=== PATIENT | male | born 1955 | race Caucasian/White ===

== ENCOUNTER 2017-08-15 04:18 | Inpatient (IN) | payer OTHER ==
[2017-08-15] MEDS ORDERED: FUROSEMIDE 40 MG/4 ML VIAL IVP ONE (04:24)
[2017-08-15] MEDS ORDERED: IPRATROPIUM/ALBUTEROL 3 ML DEYVIAL IH ONE (04:24)
[2017-08-15] MEDS ORDERED: methylPREDNISolone SOD SUCC 125 MG/2 ML VIAL IVP ONE (04:24)
--- NOTE | 2017-08-15 04:26 | EDPHY ---
H & P Stated Complaint: shortness of breath Time Seen by Provider: 08/15/17 04:25 HPI/ROS: HPI The patient presents with shortness of breath, brought in by paramedics. Apparently, he has been sick over the last 5 days. He says there been multiple sick family members in the home. He has had congestion and mild coughing. He became worse this morning with wheezing. His checked his pulse oximetry and it was 70%. He was placed on his home oxygen without much improvement in his respiratory status, thus 911 was called. Paramedics placed him on CPAP with improvement of his sats to the 90s. He received a DuoNeb EN route. He was previously on Prolastin for many years, though off over the last 4 months due to some difficulties with insurance. He also says he has intermittent lower extremity edema which is worse lately. He denies any chest pain. REVIEW OF SYSTEMS Constitutional: No fever, no chills. Eyes: No discharge. ENT: No sore throat. Cardiovascular: No chest pain, no palpitations. Respiratory: No cough, no shortness of breath. Gastrointestinal: No abdominal pain, no vomiting. Genitourinary: No hematuria. Musculoskeletal: No back pain. Skin: No rashes. Neurological: No headache. PMHx: COPD alpha 1 antitrypsin, no hospitalizations that he can recall, on home oxygen and CPAP as needed Soc Hx: Lives at home with family PHYSICAL General Appearance: Alert, tachypneic Eyes: Pupils equal and round no pallor or injection ENT, Mouth: Mucous membranes dry Respiratory: Tachypneic, wheezes heard throughout all lung [place] Cardiovascular: Regular rate and rhythm Gastrointestinal: Abdomen is soft and non-tender, no masses, bowel sounds normal Neurological: A&O, moves all extremities Skin: Warm and dry, no rashes Musculoskeletal: Neck is supple non tender Extremities: symmetrical, full range of motion, 2+ lower extremity edema to mid calf Psychiatric: Patient is oriented X 3, there is no agitation Source: Patient, EMS Exam Limitations: No limitations Constitutional: Initial Vital Signs Temperature (C) 36.7 C 08/15/17 04:19 Heart Rate 110 H 08/15/17 04:19 Respiratory Rate 32 H 08/15/17 04:19 Blood Pressure 170/94 H 08/15/17 04:19 O2 Sat (%) 83 L 08/15/17 04:19 O2 Delivery Mode CPAP Allergies/Adverse Reactions: tetanus and diphtheria toxoids Allergy (Verified 08/15/17 04:28) Medical Decision Making - Diagnostics EKG Interpretation: EKG: Complete interpretation has been separately recorded in the [facility] archive. Summary impression: T-wave inversions in V1 through V3 Imaging Results: Chest x-ray two views shows diffuse infiltrate, no cardiomegaly, interpreted by me, radiology interpretation is pending Imaging: I viewed and interpreted images myself Differential Diagnosis: This is a 62-year-old male with an will flow 1 antitrypsin deficiency COPD who presents brought in by ambulance for shortness of breath and wheezing in the setting of 5 days of URI type symptoms with sick contacts at home. In the field , he received DuoNeb and was started on CPAP due to room-air saturations in the 70s. I met the paramedics upon their arrival to obtain their report. The patient was started on BiPAP immediately with improvement in his saturations. He was given DuoNeb and albuterol in-line. He was treated for COPD exacerbation with Solu-Medrol, antibiotics to provide coverage for community-acquired pneumonia. Patient did have lower extremity edema, pressure was notably elevated, BNP was also elevated raising suspicion for possible CHF exacerbation. Because of this the patient was given Lasix IV, sublingual nitro as well. Troponin returned elevated, EKG showed no ischemic changes, however the patient was given an aspirin given some diagnostic uncertainty. After BiPAP for about 1 hour, patient saturations remained in the high 80s to 90s. He was feeling better, however has continued requirement for BiPAP. I have ordered additional albuterol. The patient will require admission to the Step-Down Unit. I have discussed the case with the hospitalist Dr. Shannon who will admit the patient. Critical Care Time: CRITICAL CARE Critical care time spent by me, Dr. Brown, exclusively with this patient was 45 minutes, exclusive of PA time and exclusive of procedures. The organ system at risk was respiratory and I gave BiPAP, IV Lasix, IV antibiotics, and emergently transfer the patient to the SDU to prevent worsening of the patients condition. - Data Points Laboratory Results: Laboratory Results 08/15/17 04:30 08/15/17 04:30 08/15/17 08/15/17 04:30 04:30 WBC 4.97 10^3/uL 10^3/uL (3.80-9.50) RBC 5.63 10^6/uL 10^6/uL (4.40-6.38) Hgb 19.3 g/dL H g/dL (13.7-17.5) Hct 55.3 % H % (40.0-51.0) MCV 98.2 fL fL (81.5-99.8) MCH 34.3 pg H pg (27.9-34.1) MCHC 34.9 g/dL g/dL (32.4-36.7) RDW 14.8 % % (11.5-15.2) Plt Count 138 10^3/uL L 10^3/uL (150-400) MPV 9.1 fL fL (8.7-11.7) Neut % (Auto) 73.8 % % (39.3-74.2) Lymph % (Auto) 14.1 % L % (15.0-45.0) [place] % (Auto) 11.5 % % (4.5-13.0) Eos % (Auto) 0.0 % L % (0.6-7.6) Baso % (Auto) 0.4 % % (0.3-1.7) Nucleat RBC Rel Count 0.0 % % (0.0-0.2) Absolute Neuts (auto) 3.67 10^3/uL 10^3/uL (1.70-6.50) Absolute Lymphs (auto) 0.70 10^3/uL L 10^3/uL (1.00-3.00) Absolute Monos (auto) 0.57 10^3/uL 10^3/uL (0.30-0.80) Absolute Eos (auto) 0.00 10^3/uL L 10^3/uL (0.03-0.40) Absolute Basos (auto) 0.02 10^3/uL 10^3/uL (0.02-0.10) Absolute Nucleated RBC 0.00 10^3/uL 10^3/uL (0-0.01) Immature Gran % 0.2 % % (0.0-1.1) Immature Gran # 0.01 10^3/uL 10^3/uL (0.00-0.10) Sodium 135 mEq/L mEq/L (134-144) Potassium 2.9 mEq/L L mEq/L (3.5-5.2) Chloride 80 mEq/L L mEq/L (97-110) Carbon Dioxide 42 mEq/l H* mEq/l (22-31) Anion Gap 13 mEq/L mEq/L (8-16) BUN 10 mg/dL mg/dL (7-23) Creatinine 0.6 mg/dL L mg/dL (0.7-1.3) Estimated GFR > 60 Glucose 123 mg/dL H mg/dL (70-100) Calcium 8.8 mg/dL mg/dL (8.5-10.4) Troponin I 0.066 ng/mL H ng/mL (0.000-0.034) NT-Pro-B Natriuret Pep 1960 pg/mL H pg/mL (0-125) Medications Given: Potassium Chloride (Potassium Cl 10 Meq (Premix)) 100 mls @ 100 mls/hr IV ONCE ONE Stop: 08/15/17 06:18 Last Admin: 08/15/17 05:22 Dose: 100 mls Discontinued Medications Albuterol/Ipratropium (Duoneb) 3 ml IH EDNOW ONE Stop: 08/15/17 04:25 Last Admin: 08/15/17 04:31 Dose: 3 ml Aspirin (Aspirin) 324 mg PO EDNOW ONE Stop: 08/15/17 05:40 Last Admin: 08/15/17 05:42 Dose: 324 mg Azithromycin (Zithromax) 500 mg PO EDNOW ONE PRN Reason: Protocol Stop: 08/15/17 05:18 Last Admin: 08/15/17 05:26 Dose: 500 mg Furosemide (Lasix Injection) 40 mg IVP EDNOW ONE Stop: 08/15/17 04:25 Last Admin: 08/15/17 04:31 Dose: 40 mg Ceftriaxone Sodium/Dextrose (Rocephin 1 Gm (Premix)) 50 mls @ 100 mls/hr IV EDNOW ONE PRN Reason: Protocol Stop: 08/15/17 05:46 Last Admin: 08/15/17 05:26 Dose: 50 mls Methylprednisolone Sodium Succinate (Solu-Medrol) 125 mg IVP EDNOW ONE Stop: 08/15/17 04:25 Last Admin: 08/15/17 04:31 Dose: 125 mg Nitroglycerin (Nitrostat) 0.4 mg SL EDNOW ONE Stop: 08/15/17 05:19 Last Admin: 08/15/17 05:25 Dose: 1 tab Potassium Chloride (Klor Packets) 40 meq PO EDNOW ONE Stop: 08/15/17 05:20 Last Admin: 08/15/17 05:21 Dose: 40 meq Departure - Departure Disposition: [facility] Inpatient Acute Clinical Impression: Chronic obstructive pulmonary disease with acute exacerbation, Respiratory distress Condition: Fair
[2017-08-15 04:39] LABS: % IMMATURE GRANULYOCYTES 0.2 % (0.0-1.1); ABSOLUTE IMMATURE GRANULOCYTES 0.01 10^3/uL (0.00-0.10); ADD DIFF? NO; ADD MORPH? NO; ADD SCAN? NO; ATYPICAL LYMPHOCYTE FLAG 40 (0-99); FRAGMENT RBC FLAG 20 (0-99); HEMATOCRIT 55.3 % (40.0-51.0); HEMOGLOBIN 19.3 g/dL (13.7-17.5); LEFT SHIFT FLG 0 (0-99); LIPEMIA HEMOLYSIS FLAG 90 (0-99); MEAN CELL HEMOGLOBIN 34.3 pg (27.9-34.1); MEAN CELL HEMOGLOBIN CONCENTR. 34.9 g/dL (32.4-36.7); MEAN CELL VOLUME 98.2 fL (81.5-99.8); MEAN PLATELET VOLUME 9.1 fL (8.7-11.7); PLATELET CLUMPS FLAG 0 (0-99); PLATELET COUNT 138 10^3/uL (150-400); RED BLOOD CELL COUNT 5.63 10^6/uL (4.40-6.38); RED CELL DISTRIBUTION WIDTH 14.8 % (11.5-15.2)
--- NOTE | 2017-08-15 04:52 | CPEKG ---
Heart Rate: 91 RR Interval: 659 P-R Interval: 156 QRSD Interval: 96 QT Interval: 380 QTC Interval: 468 P [place]: 72 QRS [place]: 95 T Wave [place]: 26 EKG Severity - BORDERLINE ECG - EKG Impression: SINUS RHYTHM EKG Impression: PROBABLE LEFT ATRIAL ABNORMALITY EKG Impression: RIGHT AXIS DEVIATION EKG Impression: BORDERLINE T ABNORMALITIES, ANTERIOR LEADS Electronically Signed By: Ashley Brown 15-Aug-2017 06:07:24
[2017-08-15 04:55] LABS: CALCIUM 8.8 mg/dL (8.5-10.4); CHLORIDE 80 mEq/L (97-110); CREATININE 0.6 mg/dL (0.7-1.3); GLOMERULAR FILTRATION RATE > 60; GLUCOSE 123 mg/dL (70-100); POTASSIUM 2.9 mEq/L (3.5-5.2); SODIUM 135 mEq/L (134-144)
[2017-08-15 05:07] LABS: TROPONIN I 0.066 ng/mL (0.000-0.034)
[2017-08-15 05:12] LABS: ANION GAP 13 mEq/L (8-16)
[2017-08-15 05:13] LABS: CARBON DIOXIDE 42 mEq/l (22-31)
[2017-08-15] MEDS ORDERED: AZITHROMYCIN 250 MG TAB PO ONE (05:17)
[2017-08-15] MEDS ORDERED: POTASSIUM CL 20 MEQ PKT ONE (05:17)
[2017-08-15] MEDS ORDERED: POTASSIUM Cl (KCl) 10 MEQ/100 ML BAG IV ONE (05:18)
[2017-08-15] MEDS ORDERED: NITROGLYCERIN 0.4 MG BTL SL ONE (05:18)
[2017-08-15] MEDS ORDERED: POTASSIUM CL 20 MEQ PKT PO ONE (05:19)
[2017-08-15] MEDS ORDERED: POTASSIUM Cl (KCl) 100 ML IV ONE (05:19)
[2017-08-15] MEDS ORDERED: ASPIRIN 81 MG CHEWABLE TAB PO ONE (05:39)
[2017-08-15] MEDS ORDERED: ALBUTEROL 3 ML DEYVIAL IH PRN (05:57)
[2017-08-15] MEDS ORDERED: ONDANSETRON DISINTEGRATING 4 MG TAB PO PRN (05:57)
[2017-08-15] MEDS ORDERED: ONDANSETRON 4 MG/2 ML VIAL IVP PRN (05:57)
[2017-08-15] MEDS ORDERED: ACETAMINOPHEN 325 MG TAB PO PRN (05:57)
[2017-08-15] MEDS ORDERED: IPRATROPIUM/ALBUTEROL 3 ML DEYVIAL IH SCH ×2 (06:00→12:00)
[2017-08-15] MEDS ORDERED: ALBUTEROL 3 ML DEYVIAL IH ONE ×2 (06:00→06:01)
[2017-08-15] MEDS ORDERED: ALBUTEROL 3 ML DEYVIAL ONE (06:12)
[2017-08-15 06:19] LABS: PCO2 VENOUS 77 mmHg (40-44); PH VENOUS BLOOD 7.39 (7.31-7.42); PO2 VENOUS 58 mmHg (35-40); TCO2 VENOUS 48 mEq/L (23-27); VEN MEASURED OXYGEN SATURATION 89 % (65-75)
--- NOTE | 2017-08-15 06:49 | PDGENHP ---
History and Physical - Chief Complaint Shortness of breath - History of Present Illness 62 yo M w/ COPD presents with shortness of breath. Patient developed sore throat and fatigue several days ago and has had sick contacts with similar symptoms. Over the last few days he began to develop wheezing and shortness of breath. He checked a home pulse ox and noted O2 sats in the 70's so he called EMS. Upon arrival in the ED he was noted to be in respiratory distress with audible wheezes and placed on NIPPV. Symptoms improved with nebulizer treatment and steroids. Additionally, vascular congestion on CXR and RADHA raised suspicion for volume overload so Lasix was given as well. History Information - Allergies/Home Medication List Allergies/Adverse Reactions: tetanus and diphtheria toxoids Allergy (Verified 08/15/17 04:28) I have personally reviewed and updated: family history, medical history - Past Medical History COPD - Family History Additional family history: Asked, denies family history - Social History Smoking Status: Former smoker Review of Systems Review of Systems: ROS: 10pt was reviewed & negative except for what was stated in HPI & below Physical Exam Physical Exam: Temp Pulse Resp BP Pulse Ox 36.7 C 96 16 133/95 H 98 08/15/17 04:19 08/15/17 06:18 08/15/17 06:18 08/15/17 06:18 08/15/17 06:18 Constitutional: obese, uncomfortable Eyes: PERRL, EOMI Ears, Nose, Mouth, Throat: moist mucous membranes, no oral mucosal ulcers Cardiovascular: no murmur, rub, or gallop, tachycardia, edema (2+ b/l RADHA) Respiratory: expiratory wheeze, respiratory distress, rhonchi Gastrointestinal: normoactive bowel sounds, distension Skin: warm, normal color Musculoskeletal: full muscle strength, no muscle tenderness Neurologic: AAOx3, CN II-XII Intact Psychiatric: interacting appropriately, not anxious Lab Data & Imaging Review 08/15/17 04:30 08/15/17 04:30 WBC 4.97 10^3/uL (3.80-9.50) 08/15/17 04:30 RBC 5.63 10^6/uL (4.40-6.38) 08/15/17 04:30 Hgb 19.3 g/dL (13.7-17.5) H 08/15/17 04:30 Hct 55.3 % (40.0-51.0) H 08/15/17 04:30 MCV 98.2 fL (81.5-99.8) 08/15/17 04:30 MCH 34.3 pg (27.9-34.1) H 08/15/17 04:30 MCHC 34.9 g/dL (32.4-36.7) 08/15/17 04:30 RDW 14.8 % (11.5-15.2) 08/15/17 04:30 Plt Count 138 10^3/uL (150-400) L 08/15/17 04:30 MPV 9.1 fL (8.7-11.7) 08/15/17 04:30 Neut % (Auto) 73.8 % (39.3-74.2) 08/15/17 04:30 Lymph % (Auto) 14.1 % (15.0-45.0) L 08/15/17 04:30 [place] % (Auto) 11.5 % (4.5-13.0) 08/15/17 04:30 Eos % (Auto) 0.0 % (0.6-7.6) L 08/15/17 04:30 Baso % (Auto) 0.4 % (0.3-1.7) 08/15/17 04:30 Nucleat RBC Rel Count 0.0 % (0.0-0.2) 08/15/17 04:30 Absolute Neuts (auto) 3.67 10^3/uL (1.70-6.50) 08/15/17 04:30 Absolute Lymphs (auto) 0.70 10^3/uL (1.00-3.00) L 08/15/17 04:30 Absolute Monos (auto) 0.57 10^3/uL (0.30-0.80) 08/15/17 04:30 Absolute Eos (auto) 0.00 10^3/uL (0.03-0.40) L 08/15/17 04:30 Absolute Basos (auto) 0.02 10^3/uL (0.02-0.10) 08/15/17 04:30 Absolute Nucleated RBC 0.00 10^3/uL (0-0.01) 08/15/17 04:30 Immature Gran % 0.2 % (0.0-1.1) 08/15/17 04:30 Immature Gran # 0.01 10^3/uL (0.00-0.10) 08/15/17 04:30 Puncture Site NONE GIVEN 08/15/17 06:10 Patient Temperature 37.0 DEGREES 08/15/17 06:10 VBG pH 7.39 (7.31-7.42) 08/15/17 06:10 VBG HCO3 45 mEQ/L (22-26) H 08/15/17 06:10 VBG Total CO2 48 mEq/L (23-27) H 08/15/17 06:10 VBG O2 Saturation 89 % (65-75) H 08/15/17 06:10 VBG Base Excess 14.1 mEq/L (-2.5-2.5) H 08/15/17 06:10 Mixed VBG pCO2 77 mmHg (40-44) H 08/15/17 06:10 Mixed VBG pO2 58 mmHg (35-40) H 08/15/17 06:10 Sodium 135 mEq/L (134-144) 08/15/17 04:30 Potassium 2.9 mEq/L (3.5-5.2) L 08/15/17 04:30 Chloride 80 mEq/L (97-110) L 08/15/17 04:30 Carbon Dioxide 42 mEq/l (22-31) H* 08/15/17 04:30 Anion Gap 13 mEq/L (8-16) 08/15/17 04:30 BUN 10 mg/dL (7-23) 08/15/17 04:30 Creatinine 0.6 mg/dL (0.7-1.3) L 08/15/17 04:30 Estimated GFR > 60 08/15/17 04:30 Glucose 123 mg/dL (70-100) H 08/15/17 04:30 Calcium 8.8 mg/dL (8.5-10.4) 08/15/17 04:30 Troponin I 0.066 ng/mL (0.000-0.034) H 08/15/17 04:30 NT-Pro-B Natriuret Pep 1960 pg/mL (0-125) H 08/15/17 04:30 Visualized and Interpreted Chest x-ray results: Yes Chest X-Ray results: other (Vascular congestion, mild pulmonary edema) Visualized and Interpreted EKG results: Yes EKG Interpretation: Positive for: normal sinsus rhythm, other (RAD), T waves inversion (V1-V3) Assessment & Plan Assessment: 62 yo M w/ COPD presents with SOB 2/2 COPD exacerbation with possible contribution from new CHF. Plan: 1. COPD w/ acute exacerbation - Currently with respiratory distress requiring NIPPV. Suspect viral trigger noting URI symptoms for several days prior to presentation in the setting of sick contacts. Per patient, COPD 2/2 A1A deficiency. Flu pending. - Admit to SDU noting need for NIPPV - Scheduled duonebs, albuterol PRN - Azithromycin, prednisone 40 mg qD x5 days - Restart home inhaler (Anoro) once respiratory distress resolves 2. Acute hypoxic and hypercarbic respiratory failure - 2/2 above, low suspicion for bacterial pneumonia but will continue azithromycin in setting of COPD exacerbation. Possible contribution from undiagnosed CHF. - Acute treatment as above, wean O2 as able 3. Presumed CHF - Suspicion based on vascular congestion on CXR, lower extremity edema, and elevated BNP. Likely has at least right sided dysfunction noting obesity and pulmonary disease. Patient takes Lasix 20 mg PO qD for lower extremity edema without diagnosis of CHF. - TTE for further evaluation - Lasix 40 mg IV x1 given in ED 4. Elevated troponin - No chest pain or symptoms to suggest ACS; likely demand ischemia associated with respiratory distress and hypoxia. - Monitor on telemetry, trend cardiac enzymes 5. Secondary polycythemia - 2/2 poorly controlled COPD. 6. Hypokalemia - Replete PRN Diet - Regular Code - Full Ppx - LMWH Dispo - Admit to SDU under inpatient status noting need for continuous BIPAP, further cardiac work-up, and frequent monitoring.
[2017-08-15] MEDS ORDERED: PROTOCOL POTASSIUM 1 DOSE MISC PRN (07:32)
--- NOTE | 2017-08-15 07:32 | PDMN ---
Medical Necessity Medical necessity: C/M review: est. > 2 MN LOS for eval and TX of acute COPD exacerbation, acute hypoxic respiratory failure, presumed new CHF, elevated troponin, hnypokalemia, requiring IV Lasix x 1 in ED, planned echocardiogram, ongoing O2 BIPAP, Duonebs, albuterol nebs as needed, oral Azithramycin, oral Prednisone, cardiac monitoring, pulse oximetry in SDU, comorbid COPD per H/P.
[2017-08-15] MEDS ORDERED: PROTOCOL MAGNESIUM 1 DOSE IV PRN (07:33)
[2017-08-15] MEDS ORDERED: predniSONE 20 MG TAB PO SCH (09:00)
[2017-08-15] MEDS ORDERED: ENOXAPARIN 40 MG/0.4 ML SYR SC SCH (09:00)
[2017-08-15] MEDS ORDERED: FUROSEMIDE 20 MG TAB PO SCH (09:45)
[2017-08-15] MEDS ORDERED: NON-FORMULARY NEW DRUG (Umeclidinium Brm/Vilanterol Tr [Anoro Ellipta 62.5-25 Mcg Inh] 1 E IH SCH (09:45)
--- NOTE | 2017-08-15 09:51 | HOSPPROG ---
Hospitalist Progress Note Assessment/Plan: COPD w/ acute exacerbation - Required bipap on admission, now on face mask. Suspect viral etiology with sick contacts (+parainfluenza). COPD 2/2 A1A deficiency. Flu neg. O2 requirement 12 LPM --> 5 LPM - Cont scheduled duonebs, albuterol PRN (changed to xopenex/atrovent given A fib after neb) - Change to IV Solumedrol BID - Restart home inhaler, Anoro (LABA plus anti-cholinergic) - Likely needs steroid inhaler at d/c, +/- Spiriva Acute hypoxic and hypercarbic respiratory failure - 2/2 above. Possible contribution from undiagnosed CHF. - Continue azithromycin in setting of COPD exacerbation. - Doubt PNA, but will check PCT - wean O2 as able - Cont Lasix as below Suspect acute HF - CXR personally reviewed and interpreted, +vascular congestion plus LE edema, and elevated BNP. Likely has at least right sided dysfunction noting obesity and pulmonary disease. Patient takes Lasix 20 mg PO qD for lower extremity edema without diagnosis of CHF. - Echo today - Cont IV Lasix - monitor I&O's A fib with RVR - new diagnosis. Pt with sustained RVR for >6 hrs. - Echo as above - Given IV Dilt and Metoprolol - Start oral dilt 30 q6h - Will start Lovenox 1 mg/kg BID Elevated troponin - No chest pain or symptoms to suggest ACS; likely demand ischemia associated with respiratory distress and hypoxia. - Monitor on telemetry, trend cardiac enzymes Secondary polycythemia - 2/2 poorly controlled COPD. Hypokalemia - Check Mag, Electrolyte protocol ordered Diet - Regular Code - Full Ppx - LMWH Dispo - Cont inpt Subjective: Pt feels ok, off bipap on face mask. Reports ongoing coughing with sputum production. Had sore throat and congestion initially. No fevers. No CP. +SOB Objective: Vital Signs Temp Pulse Resp BP Pulse Ox 36.8 C 90 20 149/86 H 96 08/15/17 07:56 08/15/17 07:56 08/15/17 07:56 08/15/17 07:56 08/15/17 07:56 - Physical Exam Constitutional: no apparent distress Eyes: PERRL Ears, Nose, Mouth, Throat: moist mucous membranes Cardiovascular: irregularly irregular Respiratory: no respiratory distress, reduced air movement, expiratory wheeze Gastrointestinal: normoactive bowel sounds, soft, non-tender abdomen Skin: warm Musculoskeletal: full muscle strength Neurologic: AAOx3, other (b/l 1+ LE edema) ICD10 Worksheet Patient Problems: Problems Problem Status Onset Chronic obstructive pulmonary disease with acute exacerbation Acute Respiratory distress Acute
--- NOTE | 2017-08-15 09:57 | ECHO ---
[email or web address] [address] [address] Main: [phone] Fax: [email or web address] Echocardiogram Name: CHRISTINA ROCA MR#: [id number] Study Date: 08/15/2017 Study Time: 08:35 AM Date of : 1955 Age: 62 year(s) Height: 198.1 cm (78 in.) Weight: 117.94 kg (260 lb.) BSA: 2.52 m2 Gender: Male Examination: Echo Indication: SOB/pulmonary edema/elevated BNP Image Quality: Contrast: Requested by: Conner Benson BP: 134 mmHg/90 mmHg Heart Rate: Rhythm: Indication: SOB/pulmonary edema/elevated BNP Procedure Staff Rug Weaver: Vonnie Palmer Physician: Enrique Reddy Requesting Provider: Conclusions: The ejection fraction is estimated to be 70-75 %. LV septal appears flattened from RV volume overload.. Mildly dilated right ventricle. Measurements: Chambers Valvular Assessment AV/MV Valvular Assessment TV/PV Normal Normal Normal Name Value Range Name Value Range Name Value Range Ao Beatriz (MM): 4.1 cm (2.2 cm-3.7 AV Vmax: 1.24 m/s (1 m/s-1.7 cm) m/s) LVDd (2D): 5.4 cm (4.2 cm-5.9 AV maxP mmHg ( - ) cm) MV E Vmax: 0.79 m/s ( - ) EF Range: 70-75 % MV A Vmax: 0.69 m/s ( - ) MV E/A: 1.14 ( - ) Continued Measurements: Chambers Valvular Assessment AV/MV Name Value Name Value LADs: 3.2 cm MV E' Septal: 0.07 m/s MV E/E' Septal: 11.90 Findings: Left Ventricle: Normal size left ventricle. Global hypercontractility of the left ventricle. The ejection fraction is estimated to be 70-75 %. LV septal appears flattened from RV volume overload.. Right Ventricle: Mildly dilated right ventricle. Patient: CHRISTINA ROCA Study Date: 08/15/2017 Page 1 of 2 08:35 AM Left Atrium: The left atrium is normal in size. Right Atrium: The right atrium is not well visualized. Mitral Valve: The mitral valve is normal in appearance. Aortic Valve: Aortic valve opens well. . Tricuspid Valve: Tricuspid valve not well visualized. Trivial tricuspid valve regurgitation. Pulmonic Valve: Pulmonary valve not well visualized. Pericardium: There is pericardial fat. (No Signature Object) Patient: CHRISTINA ROCA Study Date: 08/15/2017 Page 2 of 2 08:35 AM [id number]
--- NOTE | 2017-08-15 11:23 | ASMTCMCOM ---
CM Note CM Note Notes: 62 year old male admitted for SOB, COPD exascerbation, respiratory failure, possible CHF. He has a hx of COPD. Anticipate that patient will return home with on discharge, probable no needs. Date Signed: 08/15/2017 11:22 AM Electronically Signed By:Dorothea Tejeda LCSW
[2017-08-15] MEDS ORDERED: METOPROLOL TARTRATE 5 MG/5 ML INJ IVP ONE (11:34)
[2017-08-15] MEDS ORDERED: DILTIAZEM 25 MG/5 ML VIAL IVP ONE (11:45)
[2017-08-15] MEDS: FLUTICASONE NASAL 120 SPRAYS/16 GM MDI EACHNARE SCH (12:18)
[2017-08-15] MEDS: FUROSEMIDE 40 MG/4 ML VIAL IVP SCH (12:19)
[2017-08-15] MEDS: guaiFENesin 600 MG TAB.ER PO SCH ×2 (12:19→20:53)
--- NOTE | 2017-08-15 12:26 | CPEKG ---
Heart Rate: 100 RR Interval: 600 QRSD Interval: 94 QT Interval: 400 QTC Interval: 516 QRS [place]: 101 T Wave [place]: 23 EKG Severity - ABNORMAL ECG - EKG Impression: ATRIAL FIBRILLATION, V-RATE 73-130 EKG Impression: RIGHT AXIS DEVIATION EKG Impression: BORDERLINE R WAVE PROGRESSION, ANTERIOR LEADS EKG Impression: BORDERLINE T ABNORMALITIES, ANTERIOR LEADS Electronically Signed By: Yobani Ocampo 16-Aug-2017 07:05:01
[2017-08-15] MEDS: methylPREDNISolone SOD SUCC 125 MG/2 ML VIAL IVP SCH ×3 (12:44→20:53)
[2017-08-15 12:56] LABS: POTASSIUM 3.1 mEq/L (3.5-5.2)
[2017-08-15 13:11] LABS: TROPONIN I 0.037 ng/mL (0.000-0.034)
[2017-08-15] MEDS: IPRATROPIUM BROMIDE 0.5 MG/2.5 ML DEYVIAL IH SCH ×3 (14:26→20:37)
[2017-08-15] MEDS: LEVALBUTEROL 1.25 MG/3 ML DEYVIAL IH SCH ×3 (14:27→20:37)
--- NOTE | 2017-08-15 14:46 | GCON ---
[f rep st] CONSULTATION PULMONARY CRITICAL CARE CONSULTATION DATE OF CONSULTATION: 08/15/2017 REASON FOR CONSULTATION: Exacerbation of COPD. HISTORY: The patient is a 62-year-old, who is known to our office. He is followed by Dr. Smith. Shay reyes has a history of chronic obstructive pulmonary disease associated with alpha 1 antitrypsin deficien cy. He did smoke remotely. He also has a history of obstructive sleep apnea and has been on BiPAP i n the past. He presents now to the emergency department with 3 days of an upper respiratory infectio n associated with initially a sore throat, nasal congestion, and increasing pulmonary congestion and wheezing. Other individuals in his family have been ill. Oximetry readings at home were noted to be in the 70s on room air. On arrival to the emergency department, he was in some respiratory distress with wheezing. He was pl aced on BiPAP with improvement in his symptoms, given nebulized treatments, steroids, and Lasix for p ossible volume overload. He was started on antibiotics, including azithromycin and ceftriaxone. He was admitted to the intensive care unit as a step-down patient. With the above therapy, he has felt better since his admission early this morning. He remains on an OxyMask at 12 L. Saturations are in the mid 90s. He did develop atrial fibrillation with a relative ly rapid ventricular response following albuterol by nebulizer. There is no previous history of atri al fibrillation, as far as I am aware. He has had no chest pain. There is no history of coronary ar anel disease. PAST MEDICAL HISTORY: As noted above with COPD, alpha 1 antitrypsin deficiency associated with known emphysema, lower extremity edema secondary to right heart dysfunction, and obstructive sleep apnea. He was on Prolastin previously; however, he lost his insurance and Medicare apparently will not pay for Prolastin. He is on Anoro Ellipta but will run out of this shortly and, apparently, this will no t be covered any longer by his report. He has not been using CPAP. He has oxygen at home but, appar ently, does not use this much either at night or in the day. ALLERGIES: Tetanus and diphtheria toxoids. SOCIAL HISTORY: He previously worked in the [employer] business, is disabled. He smoked cigarettes in the d istant past, for about 15 years, 1 pack per day. Significant alcohol is denied. FAMILY HISTORY: His mother and father did not have emphysema. There is no known alpha 1 antitrypsin deficiency in his family. REVIEW OF SYSTEMS: A 10-point review of systems is negative, except as mentioned above. PHYSICAL EXAMINATION: GENERAL: Reveals a gentleman who appears to be resting relatively comfortably in bed. An OxyMask is in place. VITAL SIGNS: Saturations are 95%. Respiratory rate is approximat julia 16 to 20. Blood pressure is 115/90, heart rate 120 with atrial fibrillation on the monitor. He is afebrile. HEENT: Unremarkable for lymphadenopathy or thyromegaly. Jugular venous pressure does appear to be elevated. There is no obvious pharyngitis. PULMONARY: The chest reveals decreased ariana ath sounds bilaterally with scattered wheezes and rhonchi bilaterally. A loose cough is intermittent ly present. Expiratory phase is prolonged with his wheezing and congestion. HEART: Irregular and r elatively rapid. Heart tones are distant. Murmurs or gallops cannot be well appreciated. P2 does a ppear to be increased. ABDOMEN: The abdomen is overweight, soft nontender. Bowel sounds are presen t. EXTREMITIES: Remarkable for 2+ edema bilaterally. There are no cords, no obvious tenderness. N EUROLOGIC: Nonfocal. Cognition is intact. DATA BASE: Chest x-ray on admission is consistent with COPD/emphysema. Bronchial ortega are thickene d. There are no focal infiltrates; however, some vague possible areas of bibasilar increased marking s are present. Arterial blood gas in the emergency department showed a venous pH of 7.39, venous pCO2 of 77, and pO2 of 58. Saturations were 89%. Chemistries are remarkable for sodium of 135, potassium 3.1, CO2 of 42, BUN 10, and creatinine 0.6. Troponin is 0.037. BNP 1960. Procalcitonin 0.17. Influenza A/B is negative. Respiratory viral dowd el is positive for parainfluenza type 1. ASSESSMENT: 1. Exacerbation of chronic obstructive pulmonary disease, presumably viral secondary to parainfluenz a. Atypical organisms cannot be excluded. This appears to be secondary to bronchitis. There are no definite infiltrates on chest x-ray, but early atypical pneumonia cannot be absolutely excluded. Hi s underlying chronic obstructive pulmonary disease is relatively severe. Previous pulmonary function studies from our office show severe combined obstructive and restrictive physiology. There was audrey le response to bronchodilator therapy at that time. 2. Bronchitis, diffuse, associated with wheezing and secretions, presumably secondary to parainfluen za. 3. History of alpha 1 antitrypsin deficiency. On Prolastin for approximately 4 months, now off seco ndary to insurance reasons. 4. History of obstructive sleep apnea. He has not been using continuous positive airway pressure fo r a number of months despite recommendations to do so. 5. Metabolic: Hypokalemia is present. He is on potassium replacement protocols. 6. New onset atrial fibrillation. This is likely secondary to his pulmonary disease and pulmonary h ypertension/cor pulmonale. The onset of atrial fibrillation followed albuterol by nebulizer. He lela l be changed to Xopenex. Metoprolol and diltiazem will be given intravenously and a diltiazem drip c onsidered. There is no definite evidence of coronary artery disease. Troponins are mild and nonspec ifically elevated. Cardiac echocardiogram shows a normal left ventricular ejection fraction with a d ilated right ventricle and associated septal flattening. Pulmonary artery pressures, however, could not be estimated. 7. Deep venous thrombosis prophylaxis: On enoxaparin. 8. Gastrointestinal prophylaxis: Not indicated, eating. PLAN/RECOMMENDATIONS: Medications will be adjusted. Xopenex and ipratropium bromide will be given b y nebulizer q.i.d. Solu-Medrol will be continued at 60 mg q.i.d., and azithromycin continued. Lasix will be continued as well. A sputum culture for bacteria will be ordered. Potassium will be replet ed and followed. A diltiazem drip may be needed. Laboratory and chest x-ray will be followed going forward. Further plans and recommendations will be made based on his progress over the next 12-24 hours. /[id number]/MODL
[2017-08-15] MEDS ORDERED: POTASSIUM Cl (KCl) 100 ML IV SCH (15:00)
[2017-08-15] MEDS: ENOXAPARIN 120 MG/0.8 ML SYR SC SCH ×2 (17:16→20:53)
[2017-08-15] MEDS: DILTIAZEM 30 MG TAB PO SCH ×3 (17:17→23:04)
[2017-08-15] MEDS: POTASSIUM Cl (KCl) 10 MEQ in NS 100 ML IV SCH ×4 (17:25→20:57)
[2017-08-15 17:51] LABS: POTASSIUM 3.1 mEq/L (3.5-5.2)
[2017-08-15] MEDS ORDERED: methylPREDNISolone SOD SUCC 125 MG/2 ML VIAL IVP SCH (21:00)
[2017-08-16] MEDS: DILTIAZEM 30 MG TAB PO SCH (05:00)
[2017-08-16] MEDS: methylPREDNISolone SOD SUCC 125 MG/2 ML VIAL IVP SCH (05:01)
[2017-08-16 05:08] LABS: HEMATOCRIT 54.7 % (40.0-51.0); HEMOGLOBIN 18.8 g/dL (13.7-17.5); MEAN CELL HEMOGLOBIN 35.1 pg (27.9-34.1); MEAN CELL HEMOGLOBIN CONCENTR. 34.4 g/dL (32.4-36.7); MEAN CELL VOLUME 102.1 fL (81.5-99.8); RED BLOOD CELL COUNT 5.36 10^6/uL (4.40-6.38)
[2017-08-16 05:36] LABS: CALCIUM 8.8 mg/dL (8.5-10.4); CHLORIDE 82 mEq/L (97-110); CREATININE 0.7 mg/dL (0.7-1.3); GLOMERULAR FILTRATION RATE > 60; GLUCOSE 177 mg/dL (70-100); MAGNESIUM 2.2 mg/dL (1.6-2.3); POTASSIUM 3.1 mEq/L (3.5-5.2); SODIUM 135 mEq/L (134-144)
[2017-08-16 05:44] LABS: BASE EXCESS 14.2 mEq/L (-2.5-2.5); BICARBONATE 45 mEq/L (22-26); MEASURED OXYGEN SATURATION 92 % (92-95); PO2 65 mmHg (65-75)
[2017-08-16] MEDS: IPRATROPIUM BROMIDE 0.5 MG/2.5 ML DEYVIAL IH SCH ×4 (05:49→21:32)
[2017-08-16] MEDS: LEVALBUTEROL 1.25 MG/3 ML DEYVIAL IH SCH ×4 (05:49→21:32)
[2017-08-16 05:54] LABS: TCO2 48 mEq/L (23-27)
[2017-08-16 05:55] LABS: ANION GAP 8 mEq/L (8-16); CARBON DIOXIDE 45 mEq/l (22-31)
[2017-08-16 05:55] LABS: PCO2 79 mmHg (34-38)
[2017-08-16] MEDS ORDERED: POTASSIUM CL 20 MEQ TAB PO ONE (06:15)
[2017-08-16] MEDS: POTASSIUM Cl (KCl) 10 MEQ in NS 100 ML IV SCH ×4 (06:21→10:55)
--- NOTE | 2017-08-16 08:15 | HOSPPROG ---
Hospitalist Progress Note Assessment/Plan: COPD w/ acute exacerbation - +Parainfluenza. Required bipap on admission. O2 requirement 12 LPM --> 5 LPM. COPD 2/2 A1A deficiency. pCO2 70's with nl pH and elevated serum bicarb suggests chronic hypercarbia. - Cont nebs (changed to xopenex/atrovent given A fib after neb) - Change to oral Prednisone, begin to wean dose - Cont home inhaler, Anoro (LABA plus anti-cholinergic) - Advised pt he needs to use his CPAP which he has been non-compliant with. Home CPAP at night - Likely needs steroid inhaler at d/c, +/- Spiriva Acute /chronic hypoxic and hypercarbic respiratory failure - 2/2 above. Suspect contribution from undiagnosed right sided HF. On nocturnal O2 at home prn. - Continue above COPD management - Doubt PNA, PCT low risk - wean O2 as able - Cont Lasix as below Right HF - CXR personally reviewed and interpreted, +vascular congestion plus LE edema, and elevated BNP. Dilated right ventricle on echo in setting of pulmonary disease. On Lasix 20 mg PO qD for lower extremity edema. - Cont IV Lasix - monitor I&O's A fib with RVR - new diagnosis. Pt with sustained RVR for >24 hrs. With e/o HF as above, Chads-vasc 2. - Echo as above - Change to Dilt CD 120 daily for rate control - Change Lovenox to Eliquis, discussed risk/benefit with pt, he agrees to AC LE edema - likely due to RHF, venous stasis. LE u/s neg for DVT Elevated troponin - No chest pain or symptoms to suggest ACS; likely demand ischemia associated with respiratory distress and hypoxia. - trop trended down Secondary polycythemia - 2/2 poorly controlled COPD. Follow Hypokalemia - Check Mag, Electrolyte protocol ordered. - Schedule K with IV Lasix Diet - Regular Code - Full Ppx - Eliquis Dispo - Cont inpt, transfer to PCU Subjective: Pt feels much better. Breathing improved. No CP. Coughing less, hard to bring up sputum. No fevers. Objective: Vital Signs Temp Pulse Resp BP Pulse Ox 36.5 C 99 16 105/75 94 08/16/17 07:44 08/16/17 07:44 08/16/17 07:44 08/16/17 07:44 08/16/17 07:44 Microbiology 08/15/17 16:05 - Final Sputum, Expectorated 08/15/17 08:25 Respiratory Panel (PCR) - Final Nasal, Sinus - Other Parainfluenza Virus Type 1 Laboratory Results 08/16/17 05:00 08/16/17 05:00 08/15/17 08/16/17 08/17/17 05:59 05:59 05:59 Intake Total 2068 Output Total 800 Balance 1268 - Physical Exam Constitutional: no apparent distress Eyes: PERRL Ears, Nose, Mouth, Throat: moist mucous membranes Cardiovascular: irregularly irregular Respiratory: no respiratory distress, reduced air movement, expiratory wheeze Gastrointestinal: normoactive bowel sounds, soft, non-tender abdomen Skin: warm Musculoskeletal: other (1-2+ b/l LE edema, non-pitting) Neurologic: AAOx3 Psychiatric: interacting appropriately ICD10 Worksheet Patient Problems: Problems Problem Status Onset Chronic obstructive pulmonary disease with acute exacerbation Acute Respiratory distress Acute
[2017-08-16] MEDS: guaiFENesin 600 MG TAB.ER PO SCH ×2 (08:47→20:31)
[2017-08-16] MEDS: AZITHROMYCIN 250 MG TAB PO SCH (08:47)
[2017-08-16] MEDS: FUROSEMIDE 40 MG/4 ML VIAL IVP SCH (08:47)
[2017-08-16] MEDS: APIXABAN 5 MG TAB PO SCH ×2 (08:48→20:31)
[2017-08-16] MEDS: FLUTICASONE NASAL 120 SPRAYS/16 GM MDI EACHNARE SCH (08:48)
[2017-08-16] MEDS ORDERED: Umeclidinium Brm/Vilanterol Tr [Anoro Ellipta 62.5-25 Mcg Inh] 1 E IH SCH (09:00)
[2017-08-16] MEDS ORDERED: AZITHROMYCIN IV 500 MG in D5W 250 ML IV SCH (09:00)
[2017-08-16] MEDS ORDERED: AZITHROMYCIN 250 MG TAB PO SCH (09:00)
[2017-08-16] MEDS: DILTIAZEM CD 120 MG CAP PO SCH (12:12)
[2017-08-16] MEDS: POTASSIUM CL 20 MEQ TAB PO SCH ×2 (17:33→20:31)
[2017-08-16] MEDS: predniSONE 20 MG TAB PO SCH (17:34)
[2017-08-16] MEDS ORDERED: predniSONE 20 MG TAB PO SCH (18:00)
[2017-08-16 19:15] LABS: POTASSIUM 3.8 mEq/L (3.5-5.2)
[2017-08-16] MEDS ORDERED: POTASSIUM CL 10 MEQ TAB PO ONE (19:51)
[2017-08-17 05:23] LABS: HEMATOCRIT 54.1 % (40.0-51.0); HEMOGLOBIN 18.4 g/dL (13.7-17.5); MEAN CELL HEMOGLOBIN 34.5 pg (27.9-34.1); MEAN CELL VOLUME 101.3 fL (81.5-99.8); RED BLOOD CELL COUNT 5.34 10^6/uL (4.40-6.38); RED CELL DISTRIBUTION WIDTH 14.5 % (11.5-15.2)
[2017-08-17] MEDS: LEVALBUTEROL 1.25 MG/3 ML DEYVIAL IH SCH ×4 (05:37→20:53)
[2017-08-17] MEDS: IPRATROPIUM BROMIDE 0.5 MG/2.5 ML DEYVIAL IH SCH ×4 (05:37→20:53)
[2017-08-17 05:50] LABS: CALCIUM 8.6 mg/dL (8.5-10.4); CHLORIDE 86 mEq/L (97-110); CREATININE 0.7 mg/dL (0.7-1.3); GLOMERULAR FILTRATION RATE > 60; GLUCOSE 116 mg/dL (70-100); POTASSIUM 3.7 mEq/L (3.5-5.2); SODIUM 137 mEq/L (134-144)
[2017-08-17 06:00] LABS: ANION GAP 7 mEq/L (8-16); CARBON DIOXIDE 44 mEq/l (22-31)
[2017-08-17] MEDS: POTASSIUM CL 20 MEQ TAB PO SCH ×2 (08:15→20:28)
[2017-08-17] MEDS: APIXABAN 5 MG TAB PO SCH ×2 (08:16→20:28)
[2017-08-17] MEDS: predniSONE 20 MG TAB PO SCH (08:16)
[2017-08-17] MEDS: AZITHROMYCIN 250 MG TAB PO SCH (08:16)
[2017-08-17] MEDS: guaiFENesin 600 MG TAB.ER PO SCH ×2 (08:16→20:28)
[2017-08-17] MEDS: FUROSEMIDE 40 MG TAB PO SCH (08:16)
[2017-08-17] MEDS: DILTIAZEM CD 120 MG CAP PO SCH (08:16)
[2017-08-17] MEDS: FLUTICASONE NASAL 120 SPRAYS/16 GM MDI EACHNARE SCH (08:17)
[2017-08-17] MEDS ORDERED: POTASSIUM CL 10 MEQ TAB PO ONE (09:59)
--- NOTE | 2017-08-17 11:42 | HOSPPROG ---
Hospitalist Progress Note Assessment/Plan: #Acute on chronic hypoxemic resp failure: due to parainfluenza -cont Nebs, pred, azithro -procalcitonin min elevated, sputum with MRSA, so will change to IV CTX -negative LE U/S #COPD exacerbation: due to PNA, viral infection. Cont pred, nebs #New onset atrial fib -suspect due to acute illness, nebs. On Eliquis -add extra dose Dilt now, increase to 180mg tomorrow #Hypokalemia: repleted #Metabolic alkalosis: due to acute resp illnes #Diet: regular #DVT ppx: Eliquis #Disp: cont inpatient admission with increased oxygen needs, IV abx Subjective: feeling better today. No CP. SOB improved Objective: Vital Signs Temp Pulse Resp BP Pulse Ox 36.5 C 125 H 20 119/70 91 L 08/17/17 11:24 08/17/17 11:24 08/17/17 11:24 08/17/17 11:24 08/17/17 11:24 Microbiology 08/15/17 16:05 - Final Sputum, Expectorated Laboratory Results 08/17/17 04:21 08/17/17 04:21 08/16/17 08/17/17 08/18/17 05:59 05:59 05:59 Intake Total 2068 300 750 Output Total 800 1150 Balance 1268 300 -400 - Physical Exam Constitutional: no apparent distress Eyes: PERRL Ears, Nose, Mouth, Throat: moist mucous membranes Cardiovascular: no murmur, rub, or gallop, irregularly irregular Respiratory: reduced air movement (decreased BS throughout, poor air movement), expiratory wheeze Genitourinary: no bladder fullness Musculoskeletal: full muscle strength Neurologic: AAOx3 Psychiatric: interacting appropriately ICD10 Worksheet Patient Problems: Problems Problem Status Onset Chronic obstructive pulmonary disease with acute exacerbation Acute Respiratory distress Acute
[2017-08-17] MEDS ORDERED: DILTIAZEM CD 180 MG CAP PO ONE (11:43)
--- NOTE | 2017-08-17 11:52 | CPEKG ---
Heart Rate: 115 RR Interval: 522 QRSD Interval: 92 QT Interval: 368 QTC Interval: 509 QRS Denton: 85 T Wave Denton: 37 EKG Severity - ABNORMAL ECG - EKG Impression: ATRIAL FIBRILLATION, V-RATE 71-155 EKG Impression: VENTRICULAR PREMATURE COMPLEX EKG Impression: BORDERLINE RIGHT AXIS DEVIATION EKG Impression: NONSPECIFIC T ABNORMALITIES, ANTERIOR LEADS EKG Impression: PROLONGED QT INTERVAL Electronically Signed By: Doc Carter 17-Aug-2017 15:38:13
[2017-08-17] MEDS ORDERED: DILTIAZEM 30 MG TAB PO ONE (12:02)
[2017-08-17 12:23] LABS: POTASSIUM 4.6 mEq/L (3.5-5.2)
[2017-08-17 18:31] LABS: POTASSIUM 4.2 mEq/L (3.5-5.2)
[2017-08-18 04:09] LABS: HEMATOCRIT 53.2 % (40.0-51.0); HEMOGLOBIN 18.1 g/dL (13.7-17.5); MEAN CELL HEMOGLOBIN 34.4 pg (27.9-34.1); MEAN CELL VOLUME 101.1 fL (81.5-99.8); RED BLOOD CELL COUNT 5.26 10^6/uL (4.40-6.38); RED CELL DISTRIBUTION WIDTH 14.6 % (11.5-15.2)
[2017-08-18 04:49] LABS: CALCIUM 8.7 mg/dL (8.5-10.4); CHLORIDE 88 mEq/L (97-110); CREATININE 0.6 mg/dL (0.7-1.3); GLOMERULAR FILTRATION RATE > 60; GLUCOSE 102 mg/dL (70-100); POTASSIUM 3.6 mEq/L (3.5-5.2); SODIUM 137 mEq/L (134-144)
[2017-08-18] MEDS: LEVALBUTEROL 1.25 MG/3 ML DEYVIAL IH SCH ×4 (05:12→20:46)
[2017-08-18] MEDS: IPRATROPIUM BROMIDE 0.5 MG/2.5 ML DEYVIAL IH SCH ×4 (05:12→20:46)
[2017-08-18 05:34] LABS: ANION GAP 6 mEq/L (8-16)
[2017-08-18 05:36] LABS: CARBON DIOXIDE 43 mEq/l (22-31)
[2017-08-18] MEDS ORDERED: DILTIAZEM CD 120 MG CAP PO SCH (06:00)
[2017-08-18] MEDS ORDERED: POTASSIUM CL 10 MEQ TAB PO ONE (07:36)
--- NOTE | 2017-08-18 08:24 | HOSPPROG ---
Hospitalist Progress Note Assessment/Plan: #Acute on chronic hypoxemic resp failure: due to parainfluenza -cont Nebs, pred, azithro -procalcitonin min elevated, sputum with MRSA, so will change to IV CTX -negative LE U/S #COPD exacerbation: due to PNA, viral infection. Cont pred, nebs #Paroxysmal atrial fib -1 episode in past. Suspect due to acute illness, nebs. CHADsvAcs 1, but with recurrence, will anticoagulate on Eliquis for 4 weeks for possible cardioversion in future. Outpatient Cardiology. #Hypokalemia: repleted #Metabolic alkalosis: due to acute resp illnes #Diet: regular #DVT ppx: Eliquis #Disp: cont inpatient admission with increased oxygen needs, IV abx Time spent on visit: 40 min bedside with patient and family discussing AC and cardioversion options Subjective: no CP. SOB improved Objective: Vital Signs Temp Pulse Resp BP Pulse Ox 36.5 C 102 H 17 135/98 H 91 L 08/18/17 07:29 08/18/17 07:29 08/18/17 07:29 08/18/17 07:29 08/18/17 07:29 Microbiology 08/15/17 16:05 - Final Sputum, Expectorated Sputum Culture - Final Staphylococcus Aureus Laboratory Results 08/18/17 03:56 08/18/17 03:56 08/17/17 08/18/17 08/19/17 05:59 05:59 05:59 Intake Total 300 5350 Output Total 2400 Balance 300 2950 ICD10 Worksheet Patient Problems: Problems Problem Status Onset Chronic obstructive pulmonary disease with acute exacerbation Acute Respiratory distress Acute
[2017-08-18] MEDS ORDERED: DILTIAZEM CD 180 MG CAP PO SCH (09:00)
[2017-08-18] MEDS: FUROSEMIDE 40 MG TAB PO SCH (09:18)
[2017-08-18] MEDS: guaiFENesin 600 MG TAB.ER PO SCH ×2 (09:19→20:03)
[2017-08-18] MEDS: POTASSIUM CL 20 MEQ TAB PO SCH ×2 (09:20→20:03)
[2017-08-18] MEDS: APIXABAN 5 MG TAB PO SCH ×2 (09:20→20:03)
[2017-08-18] MEDS: predniSONE 20 MG TAB PO SCH (09:20)
[2017-08-18] MEDS: FLUTICASONE NASAL 120 SPRAYS/16 GM MDI EACHNARE SCH (09:29)
[2017-08-18] MEDS ORDERED: DILTIAZEM 60 MG TAB PO ONE (11:20)
--- NOTE | 2017-08-18 11:57 | ASMTCMCOM ---
CM Note CM Note Notes: 08/18/2017 Case Management Note Reviewed chart, spoke w/RN. There are no PT or OT evals. Case Management d/c poc: anticipating independent d/c when medically stable. Case Management to follow for possible needs for d/c IV antibiotics. Date Signed: 08/18/2017 11:56 AM Electronically Signed By:Geri Stevenson RN
[2017-08-19 04:40] LABS: POTASSIUM 4.4 mEq/L (3.5-5.2)
[2017-08-19] MEDS: IPRATROPIUM BROMIDE 0.5 MG/2.5 ML DEYVIAL IH SCH ×2 (05:13→10:26)
[2017-08-19] MEDS: LEVALBUTEROL 1.25 MG/3 ML DEYVIAL IH SCH ×2 (05:13→10:30)
[2017-08-19 08:27] VITALS: BP 129/89; TEMP 97.6
[2017-08-19] MEDS: FLUTICASONE NASAL 120 SPRAYS/16 GM MDI EACHNARE SCH (08:46)
[2017-08-19] MEDS: guaiFENesin 600 MG TAB.ER PO SCH (08:47)
[2017-08-19] MEDS: POTASSIUM CL 20 MEQ TAB PO SCH (08:47)
[2017-08-19] MEDS: predniSONE 20 MG TAB PO SCH (08:47)
[2017-08-19] MEDS: FUROSEMIDE 40 MG TAB PO SCH (08:48)
[2017-08-19] MEDS: APIXABAN 5 MG TAB PO SCH (08:48)
[2017-08-19] MEDS ORDERED: DILTIAZEM XR 240 MG CAP PO SCH (09:00)
--- NOTE | 2017-08-19 09:00 | HOSPPROG ---
Hospitalist Progress Note Assessment/Plan: #Acute on chronic hypoxemic resp failure: due to parainfluenza -cont Nebs, pred -procalcitonin min elevated, sputum with MRSA, so will change to IV CTX -negative LE U/S #COPD exacerbation: due to PNA, viral infection. Cont pred, nebs #Paroxysmal atrial fib -1 episode in past. Suspect due to acute illness, nebs. CHADsvAcs 1, but with recurrence, will anticoagulate on Eliquis for 4 weeks for possible cardioversion in future. Outpatient Cardiology. #Hypokalemia: repleted #Metabolic alkalosis: due to acute resp illnes #Diet: regular #DVT ppx: Eliquis Disp: DC today. FU Cardiology and PCP Subjective: more productive cough today Objective: Vital Signs Temp Pulse Resp BP Pulse Ox 36.4 C 106 H 12 129/89 H 91 L 08/19/17 08:00 08/19/17 08:00 08/19/17 08:00 08/19/17 08:00 08/19/17 08:00 Laboratory Results 08/18/17 03:56 08/19/17 03:34 08/18/17 08/19/17 08/20/17 05:59 05:59 05:59 Intake Total 5350 4300 Output Total 2400 1100 Balance 2950 3200 - Physical Exam Constitutional: no apparent distress Eyes: PERRL Ears, Nose, Mouth, Throat: moist mucous membranes, hearing normal Cardiovascular: regular rate and rhythym, irregularly irregular, edema (+2 pedal edema) Respiratory: expiratory wheeze (mildly improved air movement), rhonchi Gastrointestinal: normoactive bowel sounds Skin: warm Musculoskeletal: full muscle strength Neurologic: AAOx3, CN II-XII Intact ICD10 Worksheet Patient Problems: Problems Problem Status Onset Chronic obstructive pulmonary disease with acute exacerbation Acute Respiratory distress Acute
--- NOTE | 2017-08-19 09:26 | ASDISCHSUM ---
Discharge Information Plan Status:Home with No Needs Medically Cleared to Leave:08/18/2017 Discharge Date:08/18/2017 CM D/C Disposition:Home, Routine, Self-Care ADT D/C Disposition:Home, Routine, Self-Care Projected Discharge Date:08/19/2017 12:00 AM Transportation at D/C:Family Discharge Delay Reason: Follow-Up Date:08/19/2017 12:00 AM Discharge Slot: Final Diagnosis:SOB, COPD exascerbation Placement Information Patient Contact Information Contact Name:BARBARA Relationship: Address:[address] Work Phone: Tim:MARIANO Sanchez Phone: [facility]/Zip Code:[place] [address] Email: Financial Information Financial Class: Primary Plan Desc:MEDICARE INPATIENT Primary Plan Number:[id number] Secondary Plan Desc:[facility] PLAN Secondary Plan Number:[id number] Assessment Information [facility] CM Progress Note CM Note CM Note Notes: 62 year old male admitted for SOB, COPD exascerbation, respiratory failure, possible CHF. He has a hx of COPD. Anticipate that patient will return home with on discharge, probable no needs. Date Signed: 08/15/2017 11:22 AM Electronically Signed By:Dorothea Tejeda LCSW [facility] CM Progress Note CM Note CM Note Notes: 08/18/2017 Case Management Note Reviewed chart, spoke w/RN. There are no PT or OT evals. Case Management d/c poc: anticipating independent d/c when medically stable. Case Management to follow for possible needs for d/c IV antibiotics. Date Signed: 08/18/2017 11:56 AM Electronically Signed By:Geri Stevenson RN Intervention Information
[2017-08-19 10:44] VITALS: PULSE 115; RESP 20; O2SAT 90
--- NOTE | 2017-08-19 13:46 | GDS ---
[f rep st] DISCHARGE SUMMARY DISCHARGE DIAGNOSES: 1. Acute on chronic hypoxemic respiratory failure. 2. Chronic obstructive pulmonary disease exacerbation. 3. Paroxysmal atrial fibrillation. 4. Hypokalemia. 5. Metabolic alkalosis. 6. Community-acquired pneumonia. 7. Mildly decompensated right heart failure. 8. Parainfluenza viral infection. HISTORY OF PRESENT ILLNESS: A 62-year-old male with history of COPD, chronic hypoxemic respiratory failure, who presented with sore throat, fatigue and wheezing. He became more short of breath, noted his O2 sats to be 70%, so he called EMS. In the ER, he was in respiratory distress and required BiPAP. HOSPITAL COURSE BY PROBLEM: 1. Acute on chronic hypoxemic respiratory failure: usually wears 2-5 L at home. Exacerbated by parainfluenza viral infection and CAP. Sputum cultures were positive for Staph; IV ceftriaxone. Transitioned to oral abx at discharge. 2. COPD with acute exacerbation: due to CAP, viral URI. Pred burst and inhalers. Resume home CPAP. 3. Paroxysmal atrial fibrillation: one episode in past. Triggered now with acute illness. CHADS-VASc score is 1. Rate-controlled on Dilt. Will anticoagulate with Eliquis for likelihood of cardioversion in future. He will FU with [facility]. 4. Mildly decompensated right heart failure: RV mildly dilated with lower extremity edema. Resume Lasix. 5. Hypokalemia: Repleted. 6. Polycythemia: Secondary to COPD. DISPOSITION: Patient is stable for discharge home with his . MEDICATIONS: New medications: Diltiazem 240 mg daily, Eliquis 5 mg twice daily , albuterol inhaler, prednisone. FOLLOWUP: 1. Primary care physician. 2. Make appointment with Cardiology for atrial fibrillation and consideration of cardioversion in the future. Currently being anticoagulated. Time spent on discharge: 50 min counseling patient and on follow plans, medications /[id number]/MODL MTDD
== END 2017-08-19 12:53 | disposition home or self-care (01) | DRG 189 ==
LOC: EDUNIT# → F2N 06:25 → F2W 08-16 14:30
PROVIDERS: ADMIT Student in an Organized Health Care Education/Training Program; ATTEND Student in an Organized Health Care Education/Training Program
DX: J96.21 Acute and chronic respiratory failure with hypoxia (principal); J18.8 Other pneumonia, unspecified organism; J44.1 Chronic obstructive pulmonary disease with (acute) exacerbation; E87.3 Alkalosis; I50.9 Heart failure, unspecified; D75.1 Secondary polycythemia; I48.0 Paroxysmal atrial fibrillation; E87.6 Hypokalemia; B33.8 Other specified viral diseases; Z87.891 Personal history of nicotine dependence
CPT/HCPCS: 84481-90; 96374; J0456; J0696; J1650; J1940; J2930

== ENCOUNTER → 2017-09-30 | Outpatient (CLI) | payer OTHER | LOC: FIMAGING 10:21 | PROVIDERS: ATTEND Internal Medicine Pulmonary Disease | DX: J43.2 Centrilobular emphysema (principal); J98.11 Atelectasis ==

== ENCOUNTER → 2017-12-03 | Outpatient (CLI) | payer OTHER | LOC: BHFA 09:00 | PROVIDERS: ATTEND Internal Medicine Cardiovascular Disease | DX: I48.91 Unspecified atrial fibrillation (principal) | CPT/HCPCS: 78452; 93017; A9500; J2785 ==